=== PATIENT | male | born 1970 | race Caucasian/White ===

== ENCOUNTER 2017-02-15 10:56 | Emergency (ER) | payer MEDICAID, OTHER ==
[~2017-02-15] VITALS: Ht 175.3 cm; Wt 82.0 kg
[2017-02-15] MEDS ORDERED: LIDOCAINE HCL 1% 20ML VIAL (Pyxis) INJ MC ONE (12:45)
[2017-02-15] MEDS ORDERED: BACITRACIN ZINC OINT UDPKT TOP ONE (12:45)
[2017-02-15 15:32] VITALS: BP 137/78
== END 2017-02-15 16:19 | disposition left against medical advice (07) ==
LOC: ER 12:15
DX: S00.93XA Contusion of unspecified part of head, initial encounter (principal); S01.112A Laceration without foreign body of left eyelid and periocular area, initial encounter; V19.3XXA Pedal cyclist (driver) (passenger) injured in unspecified nontraffic accident, initial encounter; Y93.55 Activity, bike riding; Y92.89 Other specified places as the place of occurrence of the external cause; R03.0 Elevated blood-pressure reading, without diagnosis of hypertension; F17.210 Nicotine dependence, cigarettes, uncomplicated
CPT/HCPCS: 12011; 99283; J3490; X7700; Z7610

== ENCOUNTER 2017-02-19 08:26 | Emergency (ER) | payer OTHER ==
[~2017-02-19] VITALS: Ht 175.3 cm; Wt 82.0 kg
[2017-02-19 12:30] VITALS: BP 120/85
== END 2017-02-19 13:02 | disposition home or self-care (01) ==
LOC: ER 09:14
DX: Z48.01 Encounter for change or removal of surgical wound dressing (principal); F17.200 Nicotine dependence, unspecified, uncomplicated
CPT/HCPCS: 99283

== ENCOUNTER 2017-02-24 08:16 | Emergency (ER) | payer OTHER ==
[~2017-02-24] VITALS: Ht 175.3 cm; Wt 82.0 kg
[2017-02-24 09:13] VITALS: BP 111/65
[2017-02-24] MEDS ORDERED: BACITRACIN ZINC OINT UDPKT TOP ONE (09:45)
== END 2017-02-24 11:35 | disposition home or self-care (01) ==
LOC: ER 08:16
DX: Z48.02 Encounter for removal of sutures (principal)
CPT/HCPCS: 99283; Z7610

== ENCOUNTER 2018-11-02 17:44 | Emergency (ER) | payer MEDICAID, OTHER ==
[~2018-11-02] VITALS: Ht 172.7 cm; Wt 58.0 kg
[2018-11-02] MEDS ORDERED: ONDANSETRON HCL 4MG/2ML INJ IV STA (20:46)
[2018-11-02] MEDS ORDERED: SODIUM CHLORIDE 0.9% 1,000 ML IV ONE (20:46)
[2018-11-02 21:03] LABS: BASOPHILS % 0.1 % (0.0-2.0); HEMATOCRIT. 47.9 % (42.0-52.0); HEMOGLOBIN. 16.5 g/dL (14.0-18.0); LYMPHOCYTES % 23.9 % (20.0-50.0); MEAN CORPUSCULAR HEMOGLOBIN 29.9 pg (28.0-32.0); MEAN CORPUSCULAR VOLUME 86.9 fL (80.0-94.0); MEAN PLATELET VOLUME 7.3 fl (7.4-10.4); MONOCYTES % 9.5 % (2.0-8.0); NEUTROPHILS % 66.5 % (40.0-76.0); PLATELET 239 x1000/uL (130-400); RED BLOOD CELL COUNT 5.52 mill/uL (4.7-6.1); RED CELL DISTRIBUTION WIDTH 13.9 % (11.6-14.6)
[2018-11-02 21:08] LABS: CHLORIDE 96 mEq/L (98-107); INR 1.1; PROTHROMBIN TIME 11.4 sec (9.6-11.0)
[2018-11-02 23:04] LABS: CLARITY URINE CLEAR (CLEAR); COLOR URINE DARK YELLOW (YELLOW); KETONES URINE NEGATIVE (NEGATIVE); LEUKOCYTE ESTERASE URINE TRACE (NEGATIVE); NITRITE URINE NEGATIVE (NEGATIVE); OCCULT BLOOD URINE NEGATIVE (NEGATIVE); PH URINE 6.5 (4.5-8.0); PROTEIN URINE TRACE (NEGATIVE); SPECIFIC GRAVITY URINE 1.034 (1.005-1.030)
[2018-11-02 23:20] VITALS: BP 104/68
== END 2018-11-02 23:39 | disposition home or self-care (01) ==
LOC: ER 17:44
DX: R11.2 Nausea with vomiting, unspecified (principal); R50.9 Fever, unspecified; M79.18 Myalgia, other site
CPT/HCPCS: 36415; 80053; 81003; 83690; 85025; 85610; 87804; 96361; 96374; 99283; J2405; J7030; Z7610

== ENCOUNTER 2019-05-18 09:57 | Emergency (ER) | payer MEDICAID ==
[~2019-05-18] VITALS: Ht 172.7 cm; Wt 71.0 kg
[2019-05-18] MEDS ORDERED: MORPHINE SULFATE 4 MG/ML CPJ (NOT FOR IM USE) IV STA ×2 (11:15→15:03)
[2019-05-18] MEDS ORDERED: ONDANSETRON HCL 4MG/2ML INJ IV STA ×2 (11:15→15:03)
[2019-05-18] MEDS ORDERED: SODIUM CHLORIDE 0.9% 1,000 ML IV ONE (11:15)
[2019-05-18 12:39] LABS: HEMATOCRIT. 44.9 % (42.0-52.0); HEMOGLOBIN. 15.6 g/dL (14.0-18.0); MEAN CORPUSCULAR VOLUME 86.5 fL (80.0-94.0); MEAN PLATELET VOLUME 8.1 fl (7.4-10.4); PLATELET 214 x1000/uL (130-400); RED BLOOD CELL COUNT 5.19 mill/uL (4.7-6.1); RED CELL DISTRIBUTION WIDTH 13.6 % (11.6-14.6)
[2019-05-18 12:42] LABS: CHLORIDE 97 mEq/L (98-107)
[2019-05-18 12:45] LABS: ETHANOL BLOOD < 10 mg/dL
[2019-05-18 13:05] LABS: PARTIAL THROMBOPLASTIN TIME 31.8 sec (23.4-31.0); PROTHROMBIN TIME 10.8 sec (9.6-11.0)
[2019-05-18 14:27] LABS: PLATELET ESTIMATE NORMAL
[2019-05-18] MEDS ORDERED: MORPHINE SULFATE 4 MG/ML CPJ (NOT FOR IM USE) IV ONE (16:45)
[2019-05-18] MEDS ORDERED: PIPERACILLIN/TAZ 3.375G PREMIX 50 ML IV ONE (17:15)
[2019-05-18 22:13] VITALS: BP 110/70
== END 2019-05-18 22:13 | disposition left against medical advice (07) ==
LOC: ER 10:19
DX: K80.00 Calculus of gallbladder with acute cholecystitis without obstruction (principal); R94.5 Abnormal results of liver function studies; F17.210 Nicotine dependence, cigarettes, uncomplicated
CPT/HCPCS: 36415; 71045; 76700; 80053; 80320; 83690; 85025; 85610; 85730; 86850; 86900; 86901; 93005; 96365; 96375; 96376; 99284; J2270; J2405; J2543; J7030; G0480